=== PATIENT | male | born 1980 | race Caucasian/White ===

== ENCOUNTER 2021-06-08 18:29 | Emergency (ER) | payer OTHER ==
[~2021-06-08] VITALS: Ht 180.3 cm; Wt 113.4 kg
[2021-06-08 18:57] VITALS: BP_SYST 150
--- NOTE | 2021-06-08 19:17 | NUR ---
ER at bedside examining patient.
[2021-06-08] MEDS ORDERED: MORPHINE SULFATE 10 MG/ML VIAL IM ONE (20:00)
[2021-06-08] MEDS ORDERED: ONDANSETRON HCL 4 MG/2 ML VIAL ONE (20:10)
[2021-06-08] MEDS ORDERED: ONDANSETRON HCL 4 MG/2 ML VIAL IVP ONE ×2 (21:45→22:45)
[2021-06-08] MEDS ORDERED: MORPHINE 4 MG INJ. 4 MG/ML VIAL IVP ONE ×2 (21:45→22:45)
[2021-06-08] MEDS ORDERED: OXYC-128 PO (22:54)
[2021-06-08] MEDS ORDERED: IBUP-1969 PO (22:54)
--- NOTE | 2021-06-08 23:30 | NUR ---
Patient given written and verbal discharge instructions and verbalizes understanding. ER MD discussed with patient the results and treatment provided. Patient in stable condition. ID arm band removed. IV catheter removed intact and dressing applied, no active bleeding. Rx of pain manageent given. Patient educated on pain management and to follow up with PMD. Pain Scale . Opportunity for questions provided and answered. Medication side effect fact sheet provided.
[2021-06-08 23:55] VITALS: BP_SYST 167
== END 2021-06-08 23:30 | disposition home or self-care (01) ==
LOC: SED 18:29
DX: S93.401A Sprain of unspecified ligament of right ankle, initial encounter (principal); Z79.899 Other long term (current) drug therapy; V23.4XXA Motorcycle driver injured in collision with car, pick-up truck or van in traffic accident, initial encounter; Y93.89 Activity, other specified; Y92.89 Other specified places as the place of occurrence of the external cause; Y99.8 Other external cause status
CPT/HCPCS: 29515; 73610; 74177; 76376; 96374; 96375; 96376; 99285; J2270 ×2; J2405; Q9967